=== PATIENT | female | born 2000 | race Caucasian/White ===

== ENCOUNTER 2024-09-20 18:37 | Emergency (ER) | payer OTHER, SELFPAY ==
[2024-09-20 18:43] VITALS: BP 130/90; PULSE 91; RESP 18; TEMP 36.5; O2SAT 100; BMI 23.6
--- NOTE | 2024-09-20 18:57 | PC.WOUNDNOTE ---
pt is aware of ua sample needed
--- NOTE | 2024-09-20 19:01 | HMH.EDGENADL ---
Discharge Plan Disposition Patient Disposition: Home, Self-Care Condition: Good Prescriptions Prescriptions: New nitrofurantoin monohyd/m-cryst [Macrobid] 100 mg capsule 100 mg PO BID 5 Days Qty: 10 0RF Rx Instructions: must administer with a meal/food Referrals Follow up/Referrals: Mago Johnson APRN [Primary Care Provider] - See instructions Karen Shirley DO [Staff Physician] - See instructions Activity Restrictions/Add. Instructions Additional Instructions/Restrictions: Increase your fluid intake. Please start [id number] vitamin. Please call Dr. Shirley in the morning to make a follow-up appointment. You will need to have your AST and ALT rechecked. Please return to the ED for any worsening of your condition. During , you should only take acetaminophen jgxi-[id number] for pain. Clinical Impressions Clinical Impression: , Elevated liver enzymes, Asymptomatic bacteriuria Instructions Patient Instructions: Diet, DI for Acute Abdominal Pain Print Language Print Language: Stateless Discharge ED Provider: Enrique Storm General Adult HPI <Nissa Francisco APRN - Last Filed: 09/20/24 21:53> General Chief complaint: Abdominal Pain Stated complaint: 5 wks ,cramps,abdominal pain Time Seen by Provider: 09/20/24 18:50 Mode of Arrival: Ambulatory Source of Information: Patient Limitations: No Limitations Description of Symptoms (Recalled from ER Triage Doc. by RN): Patient presents to triage ambulatory with fianc?. States she is 5 weeks . States she has done only home tests to this point. Staters she started having abdominal pain yesterday and started a fever today. Also endorses shortness of breath with exertion. Denies any urinary symptoms. Denies vaginal bleeding. Endorses nausea. Denies vomiting. Denies diarrhea. States her last bowel movement was yesterday. Denies blood in stool. Patient endorses a history of cholecystectomy. Otherwise, retains all abdominal organs. Patient states this is her first . History of Present Illness HPI narrative: Patient is a 23-year-old female who presents to the ED after having a positive test at home, LMP 08/18/2024, states she is having intermittent left lower quadrant and suprapubic abdominal cramping over the past 24 hours. She has not taken anything for symptomatic relief. . Related Data Previous Rx's ?Medication ?Instructions ?Recorded nitrofurantoin 100 mg PO BID 5 days #10 caps 09/20/24 monohydrate/macrocrystals 100 mg capsule (Macrobid) Allergies Allergy/AdvReac Type Severity Reaction Status Date / Time No Known Allergies Allergy Verified 09/20/24 19:31 COUNTS INCLUDE 234 BEDS AT THE [facility] <Nissa Francisco APRN - Last Filed: 09/20/24 21:53> COUNTS INCLUDE 234 BEDS AT THE [facility] Disclaimer: The information contained in this section may have been updated after the patient was seen, as this information can be updated by other users. Social History (Updated 09/20/24 @ 21:53 by Nissa Francisco APRN) Smoking Status: Never smoker alcohol intake: never current occupational status: employed Travel in the last 8 weeks: None Have you lived/traveled outside US in past 30 days?: No Contact w/someone who lives/traveled outside US past 30 days?: No Exposure to someone with infectious disease in past 14 days?: No Do you have a fever (greater than 100.4 F or 38 C)?: No Have you tested positive for COVID-19: No Exposed to someone with COVID-19 in past 14 days?: No Do you have a sore throat?: No Do you have a cough?: No Do you have any weakness?: No Do you have any diarrhea?: No Are you experiencing any unusual bleeding?: Yes Do you have any muscle aches/pain?: No Do you have any abdominal pain?: No Are you experiencing loss of taste or smell?: No <Nissa Francisco APRN - Last Filed: 09/20/24 21:53> ROS Obtained: Yes Systems reviewed as appropriate & no additional complaints except as documented Physical Exam <Nissa Francisco APRN - Last Filed: 09/20/24 21:53> General General appearance: alert and in no apparent distress Head Head exam: atraumatic and normocephalic Eye Eye exam: Present normal appearance and PERRL ENT ENT exam: Present normal exam Neck Neck exam: Present normal inspection Chest Chest inspection: Present normal inspection and symmetric chest wall rise; Absent tenderness Respiratory Respiratory exam: Present normal lung sounds bilaterally Cardiovascular Cardiovascular exam: Present regular rate Abdominal Exam Abdominal exam: Present soft, tenderness (Mild left lower quadrant and suprapubic tenderness) and normal bowel sounds Extremities Exam Extremities exam: Present normal inspection and full ROM Back Exam Back exam: Present normal inspection and full ROM Neurological Exam Neurological exam: Present alert and oriented X3 Psychiatric Psychiatric exam: Present normal affect and normal mood Skin Skin exam: Present warm and dry Medical Decision Making <Nissa Francisco APRN - Last Filed: 09/20/24 21:53> Medical Records Screening: Per USPSTF and CDC recommendations, given the prevalence of disease in our region, it is our hospital?s policy to screen for HIV and viral Hepatitis for all patients aged 18 and over and those with ongoing risk factors. Romario Inquiry Pt receiving controlled substance: No Romario was queried for this patient: No Vital Signs: 09/20/24 18:43 09/20/24 20:49 09/20/24 20:53 Temperature 97.7 F Temperature Source Oral Pulse Rate 96 H 87 Pulse Rate [Radial] 91 H Respiratory Rate 18 18 Blood Pressure 110/78 110/78 Blood Pressure [R Arm] 130/90 Blood Pressure Mean 87 Blood Pressure Mean [R Arm] 103 Blood Pressure Source [R Arm] Automatic Cuff 02 Sat by Pulse Oximetry 100 100 99 Oxygen Delivery Method Room Air Room Air Lab Data Lab Results 09/20/24 18:56: SARS-CoV-2 (PCR) Not detected, Influenza A Untype (PCR) Not detected, Influenza Type B (PCR) Not detected 09/20/24 19:05: WBC 5.5, RBC 5.07, Hgb 14.8, Hct 43.8, MCV 86.4, MCH 29.2, MCHC 33.8, RDW 12.5, Plt Count 155, MPV 11.9 H, Neut % (Auto) 73.6, Lymph % (Auto) 17.0, [place] % (Auto) 6.5, Eos % (Auto) 1.8, Baso % (Auto) 0.7, Neut # (Auto) 4.1, Lymph # (Auto) 0.9, [place] # (Auto) 0.4, Eos # (Auto) 0.1, Baso # (Auto) 0.0, Sodium 136, Potassium 3.7, Chloride 103, Carbon Dioxide 23, Anion Gap 13.7, BUN 11, Creatinine 0.70, Estimated Creat Clear 103, Estimated GFR 106, Est GFR ( Amer) 128, Glucose 86, Calcium 8.5, Total Bilirubin 0.5, AST 267 H, ALT 291 H, Alkaline Phosphatase 87, Total Protein 7.1, Albumin 4.5, Globulin 2.6, Albumin/Globulin Ratio 1.7, Lipase 65, HCG, Quant 1943 H 09/20/24 19:35: Urine Color Yellow, Urine Appearance Slightly cloudy, Urine pH 6.5, Ur Specific Morgan <= 1.005, Urine Protein Negative, Urine Glucose (UA) Negative, Urine Ketones 1+, Urine Blood Negative, Urine Nitrate Negative, Urine Bilirubin Negative, Urine Urobilinogen 0.2, Ur Leukocyte Esterase 1+ A, Urine RBC None, Urine WBC 3-5, Ur Squamous Epith Cells 5-10, Urine Bacteria Trace, Urine HCG, Qual Positive 09/20/24 19:05 09/20/24 19:05 Orders (Tests/Meds): ED MEDICATIONS Discontinued Medications Generic Name Dose Route Start Last Admin Trade Name Freq PRN Reason Stop Dose Admin Nitrofurantoin Macrocrystals 100 mg 09/20/24 21:48 09/20/24 21:52 Nitrofurantoin 100mg Capsule PO 09/20/24 21:49 100 mg ONCE ONE Administration ORDERS Category Date Time Status Beta HCG, Quant [HCG,Quantitative] Stat Lab 09/20/24 19:05 Completed CBC w/Auto Diff [Complete Blood Count Auto Diff] Stat Lab 09/20/24 19:05 Completed CMP [Comprehensive Metabolic Panel] Stat Lab 09/20/24 19:05 Completed HSV 1/2 PCR, (BLOOD/SWAB) Routine Lab 09/20/24 20:49 Ordered Hepatitis Panel Stat Lab 09/20/24 20:49 Ordered Lipase Stat Lab 09/20/24 19:05 Completed Rapid PCR Covid and Flu A/B Stat Lab 09/20/24 18:56 Completed Urinalysis and Microscopic Stat Lab 09/20/24 19:35 Completed Urine , HCG Qual. Stat Lab 09/20/24 19:35 Completed Urine Culture Stat Micro 09/20/24 19:35 Received US OB transvaginal Stat Ultrasound 09/20/24 20:53 Completed Medical Decision Narrative: Patient is a pleasant 23-year-old female no significant PMHx who presents to the ED after having a positive test at home, LMP 08/18/2024, states she is having intermittent left lower quadrant and suprapubic abdominal cramping over the past 24 hours. She has not taken anything for symptomatic relief. . Upon initial exam, patient is alert, oriented and cooperative. Patient is hemodynamically stable, afebrile. Physical exam remarkable for left lower quadrant & suprapubic tenderness. Denies fever, chills, body aches, headache, visual disturbances, hand or feet swelling, posterior neck pain, chest pain, shortness of breath, nausea, vomiting, dysuria, reduced urine output, vaginal bleeding, flank pain. Differential diagnosis includes , of unknown location, ovarian cyst, UTI, pyelonephritis, among others Initial workup will be conducted with hematologic labs, transvaginal ultrasound. Initial workup reviewed by me. CBC unremarkable for any leukocytosis, stable H&H. CMP remarkable for AST 267 and ALT 291. hCG quant 1943. Urinalysis remarkable for 1+ leuks with trace bacteria. Will treat even though patient is asymptomatic due to . Due to concern for liver injury, hepatitis and HSV labs added. Patient advises that she has never been told she has elevated AST or ALT in the past, although she denies having any lab work that she is aware of. No previous labs on file to review. I informally interpreted the imaging as gest sac noted in the uterus. Please see final read. I discussed with Dr. You, OB the patient's AST and ALT. She advises these can be monitored outpatient. She advises that she would see the patient in the clinic for follow-up. Upon repeat evaluation, patient had an acceptable resolution of symptoms. They were ambulatory in the ED. Able to tolerate PO. I discussed with patient that we will start Macrobid for her UTI. She was given 1 dose of Macrobid in the ED. discussed that she would need to start [id number] vitamin. Advised her to call the OB office in the morning to make a follow-up appointment. We discussed return precautions to the ED and patient verbalized understanding peer Pending final read, care transferred to Lorne Storm MD. <Enrique Storm MD - Last Filed: 09/20/24 22:07> Vital Signs: 09/20/24 18:43 09/20/24 20:49 09/20/24 20:53 Temperature 97.7 F Temperature Source Oral Pulse Rate 96 H 87 Pulse Rate [Radial] 91 H Respiratory Rate 18 18 Blood Pressure 110/78 110/78 Blood Pressure [R Arm] 130/90 Blood Pressure Mean 87 Blood Pressure Mean [R Arm] 103 Blood Pressure Source [R Arm] Automatic Cuff 02 Sat by Pulse Oximetry 100 100 99 Oxygen Delivery Method Room Air Room Air Lab Data Lab Results 09/20/24 18:56: SARS-CoV-2 (PCR) Not detected, Influenza A Untype (PCR) Not detected, Influenza Type B (PCR) Not detected 09/20/24 19:05: WBC 5.5, RBC 5.07, Hgb 14.8, Hct 43.8, MCV 86.4, MCH 29.2, MCHC 33.8, RDW 12.5, Plt Count 155, MPV 11.9 H, Neut % (Auto) 73.6, Lymph % (Auto) 17.0, [place] % (Auto) 6.5, Eos % (Auto) 1.8, Baso % (Auto) 0.7, Neut # (Auto) 4.1, Lymph # (Auto) 0.9, [place] # (Auto) 0.4, Eos # (Auto) 0.1, Baso # (Auto) 0.0, Sodium 136, Potassium 3.7, Chloride 103, Carbon Dioxide 23, Anion Gap 13.7, BUN 11, Creatinine 0.70, Estimated Creat Clear 103, Estimated GFR 106, Est GFR ( Amer) 128, Glucose 86, Calcium 8.5, Total Bilirubin 0.5, AST 267 H, ALT 291 H, Alkaline Phosphatase 87, Total Protein 7.1, Albumin 4.5, Globulin 2.6, Albumin/Globulin Ratio 1.7, Lipase 65, HCG, Quant 1943 H 09/20/24 19:35: Urine Color Yellow, Urine Appearance Slightly cloudy, Urine pH 6.5, Ur Specific Morgan <= 1.005, Urine Protein Negative, Urine Glucose (UA) Negative, Urine Ketones 1+, Urine Blood Negative, Urine Nitrate Negative, Urine Bilirubin Negative, Urine Urobilinogen 0.2, Ur Leukocyte Esterase 1+ A, Urine RBC None, Urine WBC 3-5, Ur Squamous Epith Cells 5-10, Urine Bacteria Trace, Urine HCG, Qual Positive Orders (Tests/Meds): ED MEDICATIONS Discontinued Medications Generic Name Dose Route Start Last Admin Trade Name Freq PRN Reason Stop Dose Admin Nitrofurantoin Macrocrystals 100 mg 09/20/24 21:48 09/20/24 21:52 Nitrofurantoin 100mg Capsule PO 09/20/24 21:49 100 mg ONCE ONE Administration ORDERS Category Date Time Status Beta HCG, Quant [HCG,Quantitative] Stat Lab 09/20/24 19:05 Completed CBC w/Auto Diff [Complete Blood Count Auto Diff] Stat Lab 09/20/24 19:05 Completed CMP [Comprehensive Metabolic Panel] Stat Lab 09/20/24 19:05 Completed HSV 1/2 PCR, (BLOOD/SWAB) Routine Lab 09/20/24 20:49 Ordered Hepatitis Panel Stat Lab 09/20/24 20:49 Ordered Lipase Stat Lab 09/20/24 19:05 Completed Rapid PCR Covid and Flu A/B Stat Lab 09/20/24 18:56 Completed Urinalysis and Microscopic Stat Lab 09/20/24 19:35 Completed Urine , HCG Qual. Stat Lab 09/20/24 19:35 Completed Urine Culture Stat Micro 09/20/24 19:35 Received US OB transvaginal Stat Ultrasound 09/20/24 20:53 Completed Medical Decision Narrative: Patient is a pleasant 23-year-old female no significant PMHx who presents to the ED after having a positive test at home, LMP 08/18/2024, states she is having intermittent left lower quadrant and suprapubic abdominal cramping over the past 24 hours. She has not taken anything for symptomatic relief. . Upon initial exam, patient is alert, oriented and cooperative. Patient is hemodynamically stable, afebrile. Physical exam remarkable for left lower quadrant & suprapubic tenderness. Denies fever, chills, body aches, headache, visual disturbances, hand or feet swelling, posterior neck pain, chest pain, shortness of breath, nausea, vomiting, dysuria, reduced urine output, vaginal bleeding, flank pain. Differential diagnosis includes , of unknown location, ovarian cyst, UTI, pyelonephritis, among others Initial workup will be conducted with hematologic labs, transvaginal ultrasound. Initial workup reviewed by me. CBC unremarkable for any leukocytosis, stable H&H. CMP remarkable for AST 267 and ALT 291. hCG quant 1943. Urinalysis remarkable for 1+ leuks with trace bacteria. Will treat even though patient is asymptomatic due to . Due to concern for liver injury, hepatitis and HSV labs added. Patient advises that she has never been told she has elevated AST or ALT in the past, although she denies having any lab work that she is aware of. No previous labs on file to review. I informally interpreted the imaging as gest sac noted in the uterus. Please see final read. I discussed with Dr. You, OB the patient's AST and ALT. She advises these can be monitored outpatient. She advises that she would see the patient in the clinic for follow-up. Upon repeat evaluation, patient had an acceptable resolution of symptoms. They were ambulatory in the ED. Able to tolerate PO. I discussed with patient that we will start Macrobid for her UTI. She was given 1 dose of Macrobid in the ED. discussed that she would need to start [id number] vitamin. Advised her to call the OB office in the morning to make a follow-up appointment. We discussed return precautions to the ED and patient verbalized understanding peer Pending final read, care transferred to Lorne Storm MD. Enrique Storm: Upon assumption of care patient was hemodynamically stable. Workup reviewed by me, hematologic labs are nonactionable with the exception of transaminitis that does not require acute intervention and hepatitis panel has been sent off and will undergo surveillance on an outpatient basis. Urinalysis consistent with asymptomatic bacteriuria which will be treated with Macrobid. Transvaginal ultrasound single intrauterine gestational sac without visualization of pole or yolk sac. Recommended interval follow-up. Given this patient will follow-up in [address] Shirley and was given return precautions and verbalized understanding. Critical Care <Nissa Francisco APRN - Last Filed: 09/20/24 21:53> Critical Care Time Critical Care Time: No
[2024-09-20 19:10] LABS: Coronavirus 19, PCR Not Detected (NotDetected); Influenza A, PCR Not Detected (NotDetected); Influenza B, PCR Not Detected (NotDetected)
[2024-09-20 19:12] LABS: Basophils % 0.7 % (0.1-2.0); Eosinophils # 0.1 K/mm3 (0.0-0.4); Eosinophils % 1.8 % (0.1-12.0); Hematocrit 43.8 % (37.0-47.0); Hemoglobin 14.8 g/dL (12.2-16.2); Lymphocytes # 0.9 K/mm3 (0.7-4.5); Mean Corpuscular HGB Conc 33.8 g/dL (31.8-35.4); Mean Corpuscular Hemoglobin 29.2 pg (27.0-31.2); Mean Corpuscular Volume 86.4 fl (81-99); Mean Platelet Volume 11.9 fl (7.4-10.4); Monocytes # 0.4 K/mm3 (0.1-1.0); Monocytes % 6.5 % (1.7-9.3); Neutrophils # 4.1 K/mm3 (1.8-7.8); Neutrophils % 73.6 % (37.0-80.0); Platelet Count 155 K/mm3 (142-424); Red Blood Count 5.07 M/mm3 (4.20-5.40); Red Cell Distribution Width 12.5 % (11.5-17.5); White Blood Count 5.5 K/mm3 (4.8-10.8)
[2024-09-20 19:16] LABS: Chloride 103 mmol/L (98-107)
[2024-09-20 19:17] LABS: Albumin Level 4.5 g/dl (3.5-5.0); Potassium 3.7 mmoL/L (3.5-5.1); Sodium 136 mmol/L (136-145)
[2024-09-20 19:19] LABS: Alanine Aminotransferase 291 U/L (12-78); Albumin/Globulin Ratio 1.7 (1.1-1.8); Alkaline Phosphatase 87 U/L (38-126); Anion Gap 13.7 mEq/L (5-15); Aspartate Amino Transferase 267 U/L (14-36); Bilirubin,Total 0.5 mg/dl (0.2-1.3); Blood Urea Nitrogen 11 mg/dl (7-17); Carbon Dioxide 23 mmol/L (22.0-30.0); Creatinine Clearance Estimated 103 mL/min (50-200); Estimated Glomerular Filt Rate 106 ml/min (>60); GFR (African American) 128 ML/MIN (>60); Globulin 2.6 g/dL (1.3-3.2); Total Protein,Serum 7.1 g/dl (6.3-8.2)
[2024-09-20 19:20] LABS: Calcium 8.5 mg/dl (8.4-10.2); Glucose 86 mg/dl (74-100)
[2024-09-20 19:37] LABS: HCG,Quantitative 1943 mIU/ml (0-5.42)
[2024-09-20 19:38] LABS: Microscopic, Urine URINE MICROSCOPIC (MICROSCOPIC)
[2024-09-20 19:40] LABS: Bilirubin,Urine Negative (Negative); Blood, Urine Negative (Negative); Color,Urine YELLOW (Yellow); Glucose,Urine (UA) Negative (Negative); Ketones,Urine 1+ (Negative); Leukocyte Esterase,Urine 1+ (Negative); Nitrate,Urine Negative (Negative); PH,Urine 6.5 (5.0-8.5); Protein,Urine Negative (Negative); Specific Gravity, Urine <= 1.005 (1.005-1.030); Urobilinogen,Urine 0.2 EU/dl (0.2)
[2024-09-20 19:42] LABS: Appearance,Urine Slightly Cloudy (Clear); Urine Pregnancy, HCG Qual. Positive (Negative)
[2024-09-20 19:53] LABS: Bacteria,Urine Trace /lpf
--- NOTE | 2024-09-20 20:17 | PC.NURSE ---
US called in for Transvag
[2024-09-20 20:32] LABS: Lipase 65 U/L (23-300)
[2024-09-20 20:49] VITALS: BP 110/78; PULSE 96; O2SAT 100
[2024-09-20 20:53] VITALS: BP 110/78; PULSE 87; RESP 18; O2SAT 99
--- NOTE | 2024-09-20 20:53 | US_ITS ---
PROCEDURE INFORMATION: Exam: US , Transvaginal and US Duplex Artery and Vein, Ovaries, Complete Exam date and time: 09/20/2024 8:55 PM Age: 23 years old Clinical indication: complicated by abdominal or pelvic pain; Lower; First trimester (<14 weeks 0 days); Gestational age or lmp: 4w5d; ; Additional info: Determine preg location / abd pain / + preg LABS AND CLINICAL REPORTS: Last menstrual period start date: 08/18/2024 Gestational age (Established): 4 w 5 d Estimated due date (Established): 05/25/2025 TECHNIQUE: Imaging protocol: Real-time transvaginal obstetrical ultrasound of the maternal pelvis and a first trimester with image documentation. Transvaginal imaging was used for better evaluation of the fetus, adnexa, and/or cervix. Real-time duplex ultrasound scan of the arterial and venous flow of the ovaries with B-mode, color Doppler flow and spectral waveform analysis, Complete Duplex. Duplex exam was performed to evaluate for torsion and other vascular conditions. COMPARISON: No relevant prior studies available. FINDINGS: GESTATION: Gestation: Single intrauterine gestational sac without pole/yolk sac. heart rate: NA Extra-embryonic membranes/Placenta: Not evaluated due to early gestation. Amniotic fluid: Not evaluated due to early gestation. BIOMETRY: Gestational age (AUA): 4 w 5 d Estimated due date (AUA): 05/25/2025 Mean sac diameter: 0.48 cm. MATERNAL: Right ovary/adnexa: Right ovary measures 2.87 cm x 2.49 cm x 1.94 cm. Right ovarian volume is 7.26 mL. Mildly complex small RIGHT corpus luteal cyst. Left ovary/adnexa: Left ovary measures 2.5 cm x 2.23 cm x 1.12 cm. Left ovarian volume is 3.27 mL. Few small anechoic follicles. Doppler: Doppler examination of the ovaries with pulsed wave and color images was performed which demonstrate arterial/venous waveforms within normal limits. Intraperitoneal space: Small amount of free fluid in the pelvis. IMPRESSION: 1. Single early intrauterine gestational sac without visualization of pole or yolk sac. 2. Recommend short interval followup in 14 days. 3. Normal ovaries demonstrating blood flow on Doppler. COMMENT: Recommendations For Followup If No Viable Intrauterine : Empty gestational sac (NO yolk sac): Followup sonogram after 14 days. NO embryo WITH heartbeat on follow up sonogram is suggestive failed .
--- NOTE | 2024-09-20 21:00 | PC.NURSE ---
pt gone to ultrasound at this time.
--- NOTE | 2024-09-20 21:25 | PC.NURSE ---
pt is back from ultrasound.
--- NOTE | 2024-09-20 21:37 | PC.NURSE ---
Paged OB per Marti's
[2024-09-20] MEDS: NITROFURANTOIN 100MG CAPSULE 100 MG PO (21:52)
[2024-09-20 22:17] VITALS: BP 118/54; PULSE 78; RESP 14; TEMP 36.7; O2SAT 98
== END 2024-09-20 22:18 | disposition home or self-care (01) ==
PROVIDERS: Nurse Practitioner; Emergency Provider Emergency Medicine; PCP Nurse Practitioner Family
DX: Z34.90 Encounter for supervision of normal pregnancy, unspecified, unspecified trimester (principal); R82.71 Bacteriuria; R74.8 Abnormal levels of other serum enzymes; R10.32 Left lower quadrant pain; R10.2 Pelvic and perineal pain; R11.0 Nausea; R50.9 Fever, unspecified; Z3A.01 Less than 8 weeks gestation of pregnancy
CPT/HCPCS: 76817; 80053; 81001; 81025; 83690; 84702; 85025; 87086; 87636; 99283

== ENCOUNTER 2024-11-02 10:34 | Outpatient (CLI) | payer OTHER, SELFPAY ==
[2024-11-03 21:29] LABS: Neisseria gonorrhoeae, NAA Negative (Negative)
== END 2024-11-02 23:59 | disposition home or self-care (01) ==
LOC: LAB.DROPOF 11-04 10:34
PROVIDERS: Visit Provider Obstetrics & Gynecology
DX: Z34.91 Encounter for supervision of normal pregnancy, unspecified, first trimester (principal); Z3A.10 10 weeks gestation of pregnancy
CPT/HCPCS: 87491; 87591

== ENCOUNTER 2024-12-10 16:06 | Outpatient (CLI) | payer OTHER, SELFPAY ==
[2024-12-10 17:01] LABS: Basophils % 0.3 % (0.1-2.0); Eosinophils # 0.1 Kmm3 (0.0-0.4); Eosinophils % 1.5 % (0.1-12.0); Hematocrit 38.9 % (37.0-47.0); Hemoglobin 13.5 g/dL (12.2-16.2); Immature Granulocytes # 0.03 10^3uL; Immature Granulocytes % 0.3 %; Lymphocytes # 2.2 K/mm3 (0.7-4.5); Lymphocytes % 22.4 % (10-50); Mean Corpuscular HGB Conc 34.7 g/dL (31.8-35.4); Mean Corpuscular Hemoglobin 30.2 pg (27.0-31.2); Mean Platelet Volume 11.6 fl (7.4-10.4); Monocytes # 0.4 K/mm3 (0.1-1.0); Monocytes % 3.9 % (1.7-9.3); Neutrophils # 6.9 K/mm3 (1.8-7.8); Neutrophils % 71.6 % (37.0-80.0); Nucleated Red Blood Cells # 0 10^3/uL; Nucleated Red Blood Cells % 0 %; Platelet Count 198 K/mm3 (142-424); Red Blood Count 4.47 M/mm3 (4.20-5.40); Red Cell Distribution Width 12.9 % (11.5-17.5); White Blood Count 9.6 K/mm3 (4.8-10.8)
[2024-12-10 19:09] LABS: Alanine Aminotransferase 19 U/L (12-78); Albumin Level 3.7 g/dl (3.5-5.0); Albumin/Globulin Ratio 1.5 (1.1-1.8); Alkaline Phosphatase 47 U/L (38-126); Aspartate Amino Transferase 22 U/L (14-36); Bilirubin,Total 0.4 mg/dl (0.2-1.3); Blood Urea Nitrogen 11 mg/dl (7-17); Calcium 8.8 mg/dl (8.4-10.2); Carbon Dioxide 24 mmol/L (22.0-30.0); Chloride 107 mmol/L (98-107); Estimated Glomerular Filt Rate 125 ml/min (>60); GFR (African American) 151 ML/MIN (>60); Globulin 2.4 g/dL (1.3-3.2); Glucose 67 mg/dl (74-100); Sodium 135 mmol/L (136-145); Total Protein,Serum 6.1 g/dl (6.3-8.2)
[2024-12-10 20:02] LABS: HIV Combo NEGATIVE (Negative)
[2024-12-10 20:06] LABS: Hepatitis C Ab Qual. W/ RFX NEGATIVE (Negative)
[2024-12-10 20:15] LABS: Anion Gap 7.6 mEq/L (5-15); Potassium 3.6 mmoL/L (3.5-5.1)
[2024-12-10 20:34] LABS: Albumin Level 4.1 g/dl (3.5-5.0)
[2024-12-10 20:36] LABS: Bilirubin,Unconjugated 0.2 mg/dL (0.0-1.1)
[2024-12-10 20:37] LABS: Alanine Aminotransferase 20 U/L (12-78); Alkaline Phosphatase 51 U/L (38-126); Aspartate Amino Transferase 23 U/L (14-36); Bilirubin,Direct 0.1 mg/dl (0.0-0.4); Bilirubin,Indirect 0.3 mg/dL (0.0-0.9); Bilirubin,Total 0.4 mg/dl (0.2-1.3); Magnesium 1.7 mg/dl (1.6-2.3); Total Protein,Serum 6.5 g/dl (6.3-8.2)
[2024-12-10 20:48] LABS: Free T4 (Free Thyroxine) 0.98 ng/dl (0.78-2.19)
[2024-12-10 21:08] LABS: Thyroid Stimulating Hormone 2.33 uIU/mL (0.465-4.68)
[2024-12-11 00:24] LABS: RPR W/RFX Titers Nonreactive (Nonreactive)
[2024-12-11 05:08] LABS: Hepatitis B Surface Antigen Negative (Negative)
[2024-12-11 07:11] LABS: Rubella Antibodies, IgG 2.11 index (Immune >0.99)
== END 2024-12-10 23:59 | disposition home or self-care (01) ==
LOC: LAB 16:07
PROVIDERS: Obstetrics & Gynecology; Visit Provider Internal Medicine
DX: R06.02 Shortness of breath (principal); R74.8 Abnormal levels of other serum enzymes; R00.2 Palpitations; Z34.01 Encounter for supervision of normal first pregnancy, first trimester
CPT/HCPCS: 36415; 80053; 80076; 83735; 84439; 84443; 85025; 86592; 86762; 86803; 86850; 87340; 87389; 93270

== ENCOUNTER 2025-01-07 12:48 | Outpatient (CLI) | payer OTHER, SELFPAY ==
--- NOTE | 2025-01-07 13:00 | US_ITS ---
PROCEDURE: US OB /MATERNAL DETAIL CLINICAL INDICATION: 20 wk , schedule in 5 weeks COMPARISON: US US OB TRANSVAGINAL from 09/20/2024 FINDINGS: Transabdominal sonographic images of the pelvis were obtained. From her established due date she is 20 weeks 2 days. Single viable intrauterine gestation. Cephalic position. Placenta: Posteriorplacenta grade 1. There is an average amount of fluid. The cervix appears satisfactory. Closed and measuring 3.1 cm in length. Complete survey performed and was unremarkable on the submitted images as in PACS. No discrete anomalies identified on survey imaging by technologist. Active fetus. Three-vessel cord with satisfactory umbilical cord insertion. 4- chamber heart noted. Situs, aortic arch, LVOT, RVOT, three-vessel view appear normal. Survey of brain & ventricles Unremarkable. Cerebellum, thalamus, choroid plexus, cisterna magna appear normal. Face and neck survey unremarkable. Profile, nasion, lips and nose appeared normal. Diaphragm and chest views unremarkable. Abdomen: Both kidneys noted and unremarkable. Stomach and bladder noted and satisfactory. Spine: Survey of the spine satisfactory with no anomalies identified nor imaged. Cervical, thoracic, lower spine appear normal. Both arms and legs noted. Amniotic Fluid: Adequate. MVP 6.44 cm Measurements: Average ultrasound age 20weeks 3days. Estimated due date by ultrasound age 1005/24/2025. Estimated weight 345g BPD = 20weeks 6days HC = 20weeks 2days AC = 20weeks 6days FL = 19weeks 5days Growth Percentile= 45 Heart Rate = 143bpm Cerebellum = 19weeks 4days Humerus = 20weeks 2days HC/AC is 1.13 FL/BPD is 0.63 FL/AC is 0.2 IMPRESSION: 1. Viable fetus in the cephalic presentation with a posterior placenta grade 1. 2. The fluid is within normal limits with an MVP 6.44 cm. 3. Anatomical scan appears normal. 4. biometry is consistent with the dates. Dictated by: Montrell Cabrera MD 01/07/2025 19:38 Montrell Cabrera MD in OV 01/07/2025 19:38
== END 2025-01-07 23:59 | disposition home or self-care (01) ==
LOC: RAD 12:49
PROVIDERS: PCP Obstetrics & Gynecology; Visit Provider Obstetrics & Gynecology
DX: Z34.02 Encounter for supervision of normal first pregnancy, second trimester (principal); Z3A.20 20 weeks gestation of pregnancy
CPT/HCPCS: 76811

== ENCOUNTER 2025-01-19 08:48 | Outpatient (CLI) | payer OTHER, SELFPAY ==
--- OUTSIDE RECORDS SUMMARY | 2025-01-19 08:51 | XMS_ITS | Clinical Summary ---
Author Organization [facility] Address [address] [place] [address] Care Team Providers Care Music Typographer Name Role Phone Rafael Avina MD Primary Care Provider [phone] Allergies No known active allergies Active Problems Problem Noted Date Diagnosed Date Hypothyroid 04/28/2023 Social History Tobacco Use Types Packs/Day Years Used Date Smoking Tobacco: Never Smokeless Tobacco: Never Tobacco Cessation:Counseling Given: Not Answered Alcohol Use Standard Drinks/Week Comments Yes 1 (1 standard drink = 0.6 oz pur e alcohol) Comments Unknown Sex and Gender Information Value Date Recorded Sex Assigned at Not on file Legal Sex Female 4:26 PM EDT Gender Identity Not on file Sexual Orientation Not on file Last Filed Vital Signs Vital Sign Reading Time Taken Comments Blood Pressure 130/83 04/28/2023 6:50 PM EDT Pulse 65 04/28/2023 5:30 PM EDT Temperature 36.4 C (97.5 F) 04/28/2023 4:40 PM EDT Respiratory Rate 20 04/28/2023 5:30 PM EDT Oxygen Saturation 100% 04/28/2023 4:40 PM EDT Inhaled Oxygen Concentration - - Weight 58.1 kg (128 lb 1.4 oz) 04/28/2023 4:40 P M EDT Height 147.3 cm (4' 10 ) 04/28/2023 4:40 PM EDT Body Mass Index 26.77 04/28/2023 4:40 PM EDT Plan of Treatment Health Maintenance Due Date Last Done Comments [facility]-Depression Screening 2002 [facility]-HIV Screening 2002 [facility]-Hepatitis C Screening 2002 [facility]-Infant/Child/Adol SDOH Screenings 2002 [facility]-Varicella Vaccines (2 of 2 - 2-dose childhood series) 02/18/2008 11/26/2007 [facility]-Obesity Intervention 2008 HPV Vaccines (1 - 3-dose series) 2017 [facility]-Hepatitis A Vaccines (2 of 2 - 2-dose series) 03/12/2019 09/12/2018 [facility]- SDOH Screenings 2020 [facility]-Adult SDOH Screenings 2020 [facility]-DTaP,Tdap,and Td Vaccine s (2 - Tdap) 2021 11/26/2007 [facility]-Hepatitis B Vaccines (1 of 3 - 19+ 3-dose series) 2021 [facility]-Pap Smear 10/30/2023 [id number] Vaccine (3 - 2023- season) 2024 08/21/2021, 06/12/2021 [facility]-Influenza Vaccine (Seaso n Ended) 2025 12/14/2021 [facility]-Zoster Vaccines (1 of 2) 2052 11/26/2007 [facility]-HIB Vaccines Aged Out No longer e ligible based on patient's age to complete this topic [facility]-IPV Vaccines Aged Out No longer e ligible based on patient's age to complete this topic [facility]-Pneumococcal Vaccine: Pediatrics (0 to 5 Years) and At-Risk Patients (6 to 49 Years) Aged Out No longer eligible b ased on patient's age to complete this topic [facility]-Rotavirus Vaccines Aged Out No lo nger eligible based on patient's age to complete this topic Insurance [facility] [employer] Care Teams Music Typographer Relationship Specialty Start Date End Date Rafael Avina MD [address] [place], [place] [id number] PCP - General 04/28/23
--- NOTE | 2025-01-19 09:00 | CA_ITS ---
APPROVED REPORT EXAM: Comprehensive 2D, Doppler, and color-flow Echocardiogram Casting Machine Adjuster: Alena Christianson CRT Ht: 4 ft 10 in Wt: 110lbs BSA: 1.41 BP: 104/71 mmHg Indications: LV Function:, Shortness of Breath, 22 weeks 2D Dimensions LA Volume 21.20 mL LA Volume Index 14.60 mL/m2 (M/F) 16-34 M-Mode Dimensions RVDd 2.26 cm (0.9-2.6) LA Diam 2.58 cm (1.9-4.0) LVDd 4.13 cm (3.5-5.7) LVDs 2.99 cm (3.5-5.7) IVSd 0.86 cm (0.6-1.1) PWd 0.61 cm (0.6-1.1) EF (Teich) 54.00% FS 27.60% EDV (Teich) 75.50 mL TAPSE 1.98 (<1.7) ESV (Teich) 34.70 mL LV Diastology E Decel Time 163 (160-240 msec) E/A Ratio 1.30 MED A' 5.90 cm/s LAT A' 7.80 cm/s Aortic Valve AO Peak GR. 7.70 mmHg Mitral Valve MV E Max Vikram. 77.0 (40-130 cm/s) MV A Velocity 59.0 (40-130 cm/s) E/A Ratio 1.30 MV PHT 48.0 ms Pulmonary Valve PV Peak Velocity 145.0 (50-150 cm/s) Tricuspid Valve TR P. Velocity 228.00 cm/s RAP Estimate 10.00 mmHg RVSP 30.80 mmHg Left Ventricle The left ventricle is normal size. The left ventricular systolic function is normal. The left ventricular ejection fraction is within the normal range. There is normal left ventricular wall thickness. There is normal LV segmental wall motion. The left ventricular diastolic function is normal. LVEF is 55%. Right Ventricle The right ventricle is normal size. The right ventricular systolic function is normal. Atria Left atrium is mildly dilated. The right atrium size is normal. Color Doppler is indeterminate for presence of interatrial shunt. Aortic Valve The aortic valve opens well. There is no aortic valvular stenosis. No aortic regurgitation is present. Mitral Valve The mitral valve is normal in structure. No evidence of mitral valve stenosis. Mild mitral regurgitation. Tricuspid Valve The tricuspid valve leaflets are thin and pliable. Mild tricuspid regurgitation. RVSP is 20-25 mmHg. Pulmonic Valve The pulmonary valve is normal in structure. Trace pulmonic regurgitation. Great Vessels The aortic root is normal in size. IVC is normal in size and collapses >50% with inspiration. Pericardium There is no pericardial effusion. Other Information Study Quality: Fair Conclusion Normal biventricular systolic function. Mild LA dilation. Mild MR, mild TR. Color Doppler is indeterminate for presence of interatrial shunt. In the setting of indeterminate interatrial color Doppler, further evaluation with limited TTE + agitated saline administration is suggested. Electronically signed by : Stephanie Marinelli MD 01/23/2025 22:05:42
--- NOTE | 2025-01-19 10:00 | CA_ITS ---
APPROVED REPORT Exam: Exercise Treadmill Technologist: Gladis Suggs Ht: 4 ft 10 in Wt: 110 lbs BSA: 1.41 m2 HR: 84 bpm BP: 110/68 mmHg Stress Test Details Test: Exercise stress testing was performed using a Beto protocol. HR Resting HR: 84 bpm Max Heart Rate (APMHR): 198 bpm Max HR Achieved: 169 bpm Target HR (85% APMHR): 168 bpm % of APMHR: 85 Recovery HR: 98 bpm HR response to stress: Normal HR response to stress BP Resting BP: 110.0/68.0 mmHg Max BP: 147.0/87.0 mmHg Recovery BP: 124.0/82.0 mmHg BP response to stress: Normal blood pressure response to stress. ECG Resting ECG: Normal sinus rhythm Stress ECG: < 0.[address] depression Clinical Exercise duration: 7:10 min Exercise capacity: 9.2 METs Stress ECG Conclusion Symptoms: Chest pressure, dyspnea Arrhythmias/Ectopy: None ST-T Changes: <0.[address] depression. Conclusion: Average exercise capacity. Good HR augmentation at peak stress. No evidence of ischemia on ECG at peak stress. Electronically signed by : Stephanie Marinelli MD 01/19/2025 13:16:42
== END 2025-01-19 23:59 | disposition home or self-care (01) ==
LOC: RT 08:49
PROVIDERS: PCP Nurse Practitioner Family; Visit Provider Internal Medicine
DX: O99.412 Diseases of the circulatory system complicating pregnancy, second trimester (principal); I08.1 Rheumatic disorders of both mitral and tricuspid valves; R74.8 Abnormal levels of other serum enzymes; Z3A.22 22 weeks gestation of pregnancy
CPT/HCPCS: 93017; 93018; 93306

== ENCOUNTER 2025-03-02 14:56 | Outpatient (CLI) | payer OTHER, SELFPAY ==
--- OUTSIDE RECORDS SUMMARY | 2025-03-02 15:00 | XMS_ITS | Clinical Summary ---
Author Organization [facility] Address [address] [place] [address] Care Team Providers Care Recreation Center Director Name Role Phone Rafael Avina MD Primary Care Provider [phone] Allergies No known active allergies Active Problems [...] 19+ 3-dose series) 2021 [facility]Y-Pap Smear 10/30/2023 [id number] Vaccine (3 - 2023- season) 2024 08/21/2021, 06/12/2021 [facility]Y-Influenza Vaccine (#1) 2025 12/14/2021 UKY-Zoster Vaccines (1 of 2) [...] patient's age to complete this topic Insurance [facility] Care Teams Recreation Center Director Relationship Specialty Start Date End Date Rafael Avina MD [address] [place] [address] PCP - General 04/28/23
--- OUTSIDE RECORDS SUMMARY | 2025-03-02 15:00 | XMS_ITS | Clinical Summary ---
Author Organization [facility] Address [address] [place] [address] Care Team Providers Care Environmental Inspector Name Role Phone Rafael Avina MD Primary Care Provider [phone] Allergies No known active allergies Medications LEVOTHYROXINE SODIUM PO Take 25 mcg by mouth Daily. Active minocycline (MINOCIN,DYNACI N) 50 MG capsule Take 50 mg by mouth 2 (Two) Times a Day. Active spironolactone (ALDACTONE) 100 MG tablet Take 100 mg by mouth Daily. 09/11/2020 Active amoxicillin (AMOXIL) 500 MG capsuleIndicati ons:Tonsillitis Take 1 capsule by mouth 3 (Three) Times a Day. 30 capsule 08/04/2021 Active Active Problems Problem Noted Date Diagnosed Date Biliary dyskinesia 09/22/2018 Overview (09/22/2018): Added automatically from request for surgery [id number] Dizziness 08/13/2014 Headache above the eye region 08/13/2014 Influenza A 08/13/2014 OM (otitis media), acute 08/13/2014 Overview (10/06/2018): Overview: updated 2014 Sore throat 08/13/2014 Family History Medical History Relation Name Comments Melanoma Mother Relation Name Status Comments Mother Social History Tobacco Use Types Packs/Day Years Used Date Smoking Tobacco: Never Smokeless Tobacco: Never Alcohol Use Standard Drinks/Week Comments No 0 (1 standard drink = 0.6 oz pur e alcohol) AUDIT-C Answer Date Recorded Q1: How often do you have a drink containing alc ohol? Never 09/24/2020 Average Number of Drinks Not on file 021 Frequency of Binge Drinking Not on file 09/06 Abuse Screen Answer Date Recorded Unsafe at Home or Work/School Not on file Feels Threatened by Someone? Not on file 06/2023 Does Anyone Keep You from Co ntacting Others or Doint Things Outside the Home? Not on file 05/15/2023 Physical Sign of Abuse Present Not on file 1 Housing Stability Answer Date Recorded Current Living Arrangements Not on file 05/05 Potentially Unsafe Housing Conditions Not on kae e 05/15/2023 Family and Community Support Answer Dilip e Recorded Help with Day-to-Day Activities Not on file 05/15/2023 Lonely or Isolated Not on file 05/15/2023 Employment Answer Date Recorded Do you want help finding or keeping work or a gary b? Not on file 05/15/2023 Disabilities Answer Date Recorded Concentrating, Remembering, or Making Decisions Difficulty Not on file 05/15/2023 Doing Errands Independently Difficulty Not on fi le 05/15/2023 Education Answer Date Recorded Help with school or training? Not on file Preferred Language Not on file 05/15/2023 Comments No Sex and Gender Information Value Date Recorded Sex Assigned at Not on file Legal Sex Female 12:29 PM EDT Gender Identity Not on file Sexual Orientation Not on file Last Filed Vital Signs Vital Sign Reading Time Taken Comments Blood Pressure 114/72 08/04/2021 11:43 AM EST Pulse 98 08/04/2021 11:43 AM EST Temperature 36.6 C (97.8 F) 08/04/2021 11:43 AM EST Respiratory Rate 16 08/04/2021 11:43 AM EST Oxygen Saturation 99% 08/04/2021 11:43 AM EST Inhaled Oxygen Concentration - - Weight 52.2 kg (115 lb) 08/04/2021 11:43 AM EST Height 144.8 cm (4' 9 ) 08/04/2021 11:43 AM EST Body Mass Index 24.89 08/04/2021 11:43 AM EST Plan of Treatment Health Maintenance Due Date Last Done Comments Annual Gynecologic Pelvic an d Breast Exam 2002 HPV VACCINES (1 - 3-dose series) 2017 ANNUAL PHYSICAL 09/22/2018 HEPATITIS C SCREENING 09/22/2018 MENINGOCOCCAL B VACCINE (1 o f 2 - Standard) 2018 TDAP/TD VACCINES (1 - Tdap) 2021 COVID-19 Vaccine (1 - 2023-2 5 season) 2024 INFLUENZA VACCINE 05/05/2025 MENINGOCOCCAL VACCINE Aged Out No saundra evens eligible based on patient's age to complete this topic Pneumococcal Vaccine 0-49 Aged Out No longer eligible based on patient's age to complete this topic Insurance Care Teams Environmental Inspector Relationship Specialty Start Date End Date Rafael Avina MD [address] [address] PCP - General Family Medicine 11/16/17
--- OUTSIDE RECORDS SUMMARY | 2025-03-02 15:00 | XMS_ITS | Clinical Summary ---
Author Organization [facility] Address [address] [place] [address] Care Team Providers Care Hopper Operator Name Role Phone Rafael Avina MD Primary Care Provider [phone] Allergies No known active allergies Medications ibuprofen (IBUPROFEN) 100 MG/5ML suspension Take 10 mg/kg by mouth every 6 (six) hours as needed. Active Levothyroxine Sodium (SYNTHROID PO) Take by mouth. Active magnesium citrate 1.745 GM/30ML SOLN solution Take 296 mLs by mouth daily for 5 doses. 1500 mL 9 Active Additional Information Patient not taking.Reported on 06/11/2023 LEVOTHYROXINE SODIUM PO Take 25 mcg by mouth daily. Active levothyroxine (SYNTHROID) 50 MCG tablet Take 50 mcg by mouth daily. 3 Active acetaminophen (TYLENOL) 500 MG tablet Take 500 mg by mouth every 6 (six) hours as needed for Pain. Active Rainelle-3 Fatty Acids (FISH OIL) 1000 MG capsule Take by mouth. Activ e Active Problems Problem Noted Date Diagnosed Date Hypothyroid 04/28/2023 08/14/2023 Biliary dyskinesia 09/22/2018 08/14/2023 Overview (08/14/2023): Added automatically from request for surgery [id number] Sore throat 08/13/2014 Headache above the eye region 08/13/2014 Dizziness 08/13/2014 OM (otitis media), acute 08/13/2014 Overview (08/14/2023): updated 2014 Overview: updated 2014 Influenza A 08/13/2014 Social History Tobacco Use Types Packs/Day Years Used Date Smoking Tobacco: Never Assessed Tobacco Cessation:Counseling Given: Not Answered Comments No Sex and Gender Information Value Date Recorded Sex Assigned at Not on file Legal Sex Female 4:29 PM EST Gender Identity Not on file Sexual Orientation Not on file Last Filed Vital Signs Vital Sign Reading Time Taken Comments Blood Pressure 125/89 09/11/2018 8:22 PM EST Pulse 90 09/11/2018 8:22 PM EST Temperature 36.6 C (97.9 F) 09/11/2018 8:22 PM EST Respiratory Rate 18 09/11/2018 8:22 PM EST Oxygen Saturation 100% 09/11/2018 3:57 PM EST Inhaled Oxygen Concentration - - Weight 56.7 kg (125 lb) 08/14/2023 9:38 AM EST Height 132.1 cm (4' 4 ) 08/13/2014 5:23 PM EST Body Mass Index - - Plan of Treatment Health Maintenance Due Date Last Done Comments HPV Vaccine (1 - 3-dose series) 2017 Hepatitis A (HepA) Vaccine ( 2 of 2 - 2-dose series) 03/12/2019 09/12/2018 Hepatitis B (HepB) Vaccine ( 1 of 3 - 19+ 3-dose series) 2021 Tdap/Td Vaccine >11 yo (2 - Tdap) 2021 008 Cervical Cancer Screening 10/30/2023 Annual SDOH Screening 08/05/2024 Depression Screening 08/05/2024 Influenza Vaccine (#1) 2025 12/14/2021 Haemophilus Influenzae Type B (Hib) Vaccine Aged Out No longer eligible b ased on patient's age to complete this topic Meningococcal ACWY Aged Out No longer eligible based on patient's age to complete this topic Pneumococcal Vaccines 6-49 yo Risk Aged Out No longer eligible based on patient's age to complete this topic Polio (IPV) Aged Out No longer eligi ble based on patient's age to complete this topic Rotavirus (RV) Vaccine Aged Out No lo nger eligible based on patient's age to complete this topic Insurance [employer] [facility] Care Teams Hopper Operator Relationship Specialty Start Date End Date Rafael Avina MD [address] [place] [address] PCP - General Family Medicine 08/22/13
[2025-03-02 17:03] LABS: Hematocrit 36.0 % (37.0-47.0); Hemoglobin 12.0 g/dL (12.2-16.2); Immature Granulocytes % 0.5 %; Mean Corpuscular HGB Conc 33.3 g/dL (31.8-35.4); Mean Corpuscular Hemoglobin 29.5 pg (27.0-31.2); Mean Corpuscular Volume 88.5 fl (81-99); Nucleated Red Blood Cells % 0 %; Platelet Count 160 K/mm3 (142-424); Red Blood Count 4.07 M/mm3 (4.20-5.40); Red Cell Distribution Width-SD 37.9 fL; White Blood Count 9.4 K/mm3 (4.8-10.8)
[2025-03-02 18:31] LABS: Glucose 1 Hour 89 mg/dL (74-100)
[2025-03-02 18:35] LABS: Chloride 101 mmol/L (98-107)
[2025-03-02 18:36] LABS: Potassium 3.5 mmoL/L (3.5-5.1); Sodium 131 mmol/L (136-145)
[2025-03-02 18:39] LABS: Anion Gap 8.5 mEq/L (5-15); Blood Urea Nitrogen 10 mg/dl (7-17); Calcium 8.8 mg/dl (8.4-10.2); Carbon Dioxide 25 mmol/L (22.0-30.0); Creatinine,Serum 0.50 mg/dl (0.52-1.04); Estimated Glomerular Filt Rate 154 ml/min (>60); GFR (African American) 187 ML/MIN (>60); Glucose 88 mg/dl (74-100)
[2025-03-03 15:06] LABS: RPR W/RFX Titers Nonreactive (Nonreactive)
== END 2025-03-02 23:59 | disposition home or self-care (01) ==
PROVIDERS: Internal Medicine; Visit Provider Obstetrics & Gynecology
DX: Z34.82 Encounter for supervision of other normal pregnancy, second trimester (principal); R06.02 Shortness of breath; R74.8 Abnormal levels of other serum enzymes; R00.2 Palpitations
CPT/HCPCS: 36415; 80048; 82947; 85025; 86592

== ENCOUNTER 2025-04-04 16:38 | Outpatient (CLI) | payer OTHER, SELFPAY ==
--- OUTSIDE RECORDS SUMMARY | 2025-04-04 16:43 | XMS_ITS | Clinical Summary ---
Author Organization [facility] Address [address] [place] [address] Care Team Providers Care Dewer Name Role Phone Rafael Avina MD Primary Care Provider [phone] Allergies No known active allergies Medications LEVOTHYROXINE [...] (09/22/2018): Added automatically from request for surgery [id number] Dizziness 08/13/2014 Headache above the eye region [...] to complete this topic Insurance Care Teams Dewer Relationship Specialty Start Date End Date Rafael Avina MD [address] [address] PCP - General Family Medicine 11/16/17
--- OUTSIDE RECORDS SUMMARY | 2025-04-04 16:43 | XMS_ITS | Clinical Summary ---
Author Organization [facility] Address [address] [place] [address] Care Team Providers Care Hoisting Pile Driving Engineer Name Role Phone Rafael Avina MD Primary Care Provider [phone] Allergies No known active allergies Active Problems [...] [facility]Y-HIV Screening 2002 [facility]-Hepatitis C Screening 2002 [facility]-/Child/Adol SDOH Screenings 2002 [facility]-Varicella Vaccines (2 of [...] 19+ 3-dose series) 2021 [facility]-Pap Smear 10/30/2023 [id number] Vaccine (3 - 2023- season) 2024 08/21/2021, [...] patient's age to complete this topic Insurance [facility] Care Teams Hoisting Pile Driving Engineer Relationship Specialty Start Date End Date Rafael Avina MD [address] [place] [address] PCP - General 04/28/23
--- OUTSIDE RECORDS SUMMARY | 2025-04-04 16:43 | XMS_ITS | Clinical Summary ---
Author Organization [facility] Address [address] [place] [address] Care Team Providers Care Human Resources File Clerk Name Role Phone Rafael Avina MD Primary Care Provider [phone] Allergies No known active allergies Medications ibuprofen [...] tablet Take 50 mcg by mouth daily. Active acetaminophen (TYLENOL) 500 MG tablet Take 500 mg by mouth every 6 (six) hours as needed for Pain. Active Ralston-3 Fatty Acids (FISH OIL) 1000 MG capsule Take by mouth. Activ e Active Problems Problem Noted Date Diagnosed Date Hypothyroid 04/28/2023 08/14/2023 Biliary dyskinesia 09/22/2018 08/14/2023 Overview (08/14/2023): Added automatically from request for surgery [id number] Sore throat 08/13/2014 Headache above the eye region 08/13/2014 Dizziness 08/13/2014 OM (otitis media), acute 08/13/2014 Overview (08/14/2023): updated 2015 Overview: updated 2014 Influenza A 08/13/2014 Social [...] to complete this topic Insurance [employer] [facility] Care Teams Human Resources File Clerk Relationship Specialty Start Date End Date Rafael Avina MD [address] [place] [address] PCP - General Family Medicine 08/22/13
[2025-04-04 17:00] VITALS: BP 112/75; PULSE 94; RESP 20; TEMP 36.7; O2SAT 97; BMI 26.9
[2025-04-04 17:08] LABS: Microscopic, Urine URINE MICROSCOPIC (MICROSCOPIC)
[2025-04-04 17:12] LABS: Bilirubin,Urine Negative (Negative); Color,Urine YELLOW (Yellow); Glucose,Urine (UA) Negative (Negative); Ketones,Urine Negative (Negative); Leukocyte Esterase,Urine 2+ (Negative); PH,Urine 7.5 (5.0-8.5); Protein,Urine TRACE (Negative); Specific Gravity, Urine 1.020 (1.005-1.030); Urobilinogen,Urine 0.2 EU/dl (0.2)
[2025-04-04 17:26] LABS: Squamous Epithelial Cell,Urine 20-50 #/hpf (0-5)
[2025-04-04] MEDS: LACTATED RINGERS 1000ML 1,000 ML 999 ML IV ×2 (18:04→20:08)
[2025-04-04 19:18] LABS: Fetal Fibronectin (Rapid) Negative (Negative)
== END 2025-04-04 21:14 | disposition home or self-care (01) ==
LOC: OBOUT 16:41 → OB 16:42
PROVIDERS: Visit Provider Obstetrics & Gynecology
DX: Z34.83 Encounter for supervision of other normal pregnancy, third trimester (principal); Z3A.30 30 weeks gestation of pregnancy
CPT/HCPCS: 59025; 81001; 82731; 87086; 96360; 96361; 99212; G0463; J7120

== ENCOUNTER 2025-04-29 15:53 | Outpatient (CLI) | payer OTHER, SELFPAY | END 2025-04-29 23:59 | LOC: LAB.DROPOF 05-03 08:10 | PROVIDERS: PCP Obstetrics & Gynecology; Visit Provider Obstetrics & Gynecology | DX: Z34.82 Encounter for supervision of other normal pregnancy, second trimester (principal); R74.8 Abnormal levels of other serum enzymes; Z3A.00 Weeks of gestation of pregnancy not specified | CPT/HCPCS: 86403; 87086 ==

== ENCOUNTER 2025-05-19 14:17 | Outpatient (CLI) | payer OTHER, SELFPAY ==
--- OUTSIDE RECORDS SUMMARY | 2025-05-20 09:29 | XMS_ITS | Clinical Summary ---
Author Organization [facility] Address [address] [place] [address] Care Team Providers Care Caul Puller Name Role Phone Rafael vAina MD Primary Care Provider [phone] Allergies No known active allergies Medications ibuprofen [...] (six) hours as needed for Pain. Active Gillette-3 Fatty Acids (FISH OIL) 1000 MG capsule Take by mouth. Activ e Active Problems Problem Noted Date Diagnosed Date Hypothyroid 04/28/2023 08/14/2023 Biliary dyskinesia 09/22/2018 08/14/2023 Overview (08/14/2023): Added automatically from request for surgery [id number] Sore throat 08/13/2014 Headache above the eye [...] to complete this topic Insurance [employer] [facility] Care Teams Caul Puller Relationship Specialty Start Date End Date Rafael Avina MD [address] [place] [address] PCP - General Family Medicine 08/22/13
--- OUTSIDE RECORDS SUMMARY | 2025-05-20 09:29 | XMS_ITS | Clinical Summary ---
Author Organization [facility] Address [address] [place] [address] Care Team Providers Care Ceo & Co Founder Name Role Phone Rafael Avina MD Primary Care Provider [phone] Allergies No known active allergies Active Problems [...] 19+ 3-dose series) 2021 [facility]Y-Pap Smear 10/30/2023 [id number] Vaccine (3 - 2024- season) 2025 08/21/2021, 06/12/2021 [facility]Y-Influenza Vaccine (#1) 2025 12/14/2021 [...] patient's age to complete this topic Insurance [facility] Care Teams Ceo & Co Founder Relationship Specialty Start Date End Date Rafael Avina MD [address] [place] [address] PCP - General 04/28/23
--- OUTSIDE RECORDS SUMMARY | 2025-05-20 09:29 | XMS_ITS | Clinical Summary ---
Author Organization [facility] Address [address] [place] [address] Care Team Providers Care Locomotive Electrician Name Role Phone Rafael Avina MD Primary Care Provider [phone] Allergies No known active allergies Medications LEVOTHYROXINE [...] (09/22/2018): Added automatically from request for surgery [id number] Dizziness 08/13/2014 Headache above the eye region [...] 2018 TDAP/TD VACCINES (1 - Tdap) 2021 INFLUENZA VACCINE 03/05/2025 MENINGOCOCCAL VACCINE Aged Out No saundra evens eligible based on patient's age to complete this topic Pneumococcal Vaccine 0-49 Aged Out No longer eligible based on patient's age to complete this topic Insurance [address] [id number] Care Teams Locomotive Electrician Relationship Specialty Start Date End Date Rafael Avina MD [address] [address] PCP - General Family Medicine 11/16/17
== END 2025-05-19 23:59 | disposition home or self-care (01) ==
LOC: LAB.DROPOF 05-20 09:22
PROVIDERS: PCP Obstetrics & Gynecology; Visit Provider Obstetrics & Gynecology
DX: Z34.93 Encounter for supervision of normal pregnancy, unspecified, third trimester (principal); Z3A.00 Weeks of gestation of pregnancy not specified
CPT/HCPCS: 87086

== ENCOUNTER 2025-05-21 05:04 | Inpatient (IN) | payer OTHER, SELFPAY ==
[2025-05-21] VITALS (7 sets, daily range): BP systolic 129–132; BP diastolic 86–95; PULSE 85–106; RESP 16–19; TEMP 36.6–36.8; O2SAT 99–100; BMI 29.7
--- OUTSIDE RECORDS SUMMARY | 2025-05-21 05:10 | XMS_ITS | Clinical Summary ---
Author Organization [facility] Address [address] [place] [address] Care Team Providers Care Interior Plant Caretaker Name Role Phone Rafael Avina MD Primary Care Provider [phone] Allergies No known active allergies Active Problems [...] 19+ 3-dose series) 2021 [facility]Y-Pap Smear 10/30/2023 [id number] Vaccine (3 - 2024- season) 2025 08/21/2021, [...] patient's age to complete this topic Insurance [facility] Care Teams Interior Plant Caretaker Relationship Specialty Start Date End Date Rafael Avina MD [address] [place] [address] PCP - General 04/28/23
--- OUTSIDE RECORDS SUMMARY | 2025-05-21 05:10 | XMS_ITS | Clinical Summary ---
Author Organization [facility] Address [address] [place] [address] Care Team Providers Care Stained Glass Installer Name Role Phone Rafael Avina MD Primary Care Provider [phone] Allergies No known active allergies Medications ibuprofen [...] (six) hours as needed for Pain. Active [place]ague-3 Fatty Acids (FISH OIL) 1000 MG capsule Take by mouth. Activ e Active Problems Problem Noted Date Diagnosed Date Hypothyroid 04/28/2023 08/14/2023 Biliary dyskinesia 09/22/2018 08/14/2023 Overview (08/14/2023): Added automatically from request for surgery [id number] Sore throat 08/13/2014 Headache above the eye [...] to complete this topic Insurance [employer] [facility] Care Teams Stained Glass Installer Relationship Specialty Start Date End Date Rafael Avina MD [address] [place] [address] PCP - General Family Medicine 08/22/13
--- OUTSIDE RECORDS SUMMARY | 2025-05-21 05:10 | XMS_ITS | Clinical Summary ---
Author Organization [facility] Address [address] [place] [address] Care Team Providers Care Boning Room Worker Name Role Phone Rafael Avina MD Primary Care Provider [phone] Allergies No known active allergies Medications LEVOTHYROXINE [...] (09/22/2018): Added automatically from request for surgery [id number] Dizziness 08/13/2014 Headache above the eye region [...] age to complete this topic Insurance [address] [id number] Care Teams Boning Room Worker Relationship Specialty Start Date End Date Rafael Avina MD [address] [address] PCP - General Family Medicine 11/16/17
[2025-05-21] MEDS: DEXTROSE 5%-LACTATED RINGERS 1,000 ML 125 ML IV ×2 (05:59→10:22)
[2025-05-21] MEDS: OXYTOCIN/RINGERS LACTATE 30 UNITS/500 ML BAG IV (05:59)
[2025-05-21 06:01] LABS: Hematocrit 36.0 % (37.0-47.0); Hemoglobin 11.7 g/dL (12.2-16.2); Immature Granulocytes % 0.4 %; Mean Corpuscular HGB Conc 32.5 g/dL (31.8-35.4); Mean Corpuscular Hemoglobin 26.1 pg (27.0-31.2); Mean Corpuscular Volume 80.2 fl (81-99); Nucleated Red Blood Cells % 0 %; Platelet Count 157 K/mm3 (142-424); Red Blood Count 4.49 M/mm3 (4.20-5.40); Red Cell Distribution Width-SD 40.0 fL; White Blood Count 9.3 K/mm3 (4.8-10.8)
[2025-05-21 06:03] LABS: Albumin Level 3.4 g/dl (3.5-5.0); Chloride 104 mmol/L (98-107); Potassium 3.9 mmoL/L (3.5-5.1); Sodium 134 mmol/L (136-145)
[2025-05-21 06:05] LABS: Blood Urea Nitrogen 12 mg/dl (7-17); Creatinine Clearance Estimated 128 mL/min (50-200); Creatinine,Serum 0.70 mg/dl (0.52-1.04); Estimated Glomerular Filt Rate 105 ml/min (>60); GFR (African American) 127 ML/MIN (>60)
[2025-05-21 06:06] LABS: Alanine Aminotransferase 19 U/L (12-78); Albumin/Globulin Ratio 1.1 (1.1-1.8); Alkaline Phosphatase 221 U/L (38-126); Anion Gap 11.9 mEq/L (5-15); Aspartate Amino Transferase 26 U/L (14-36); Bilirubin,Total 0.2 mg/dl (0.2-1.3); Calcium 8.8 mg/dl (8.4-10.2); Carbon Dioxide 22 mmol/L (22.0-30.0); Globulin 3.0 g/dL (1.3-3.2); Glucose 96 mg/dl (74-100); Total Protein,Serum 6.4 g/dl (6.3-8.2)
[2025-05-21 07:56] LABS: RPR W/RFX Titers Nonreactive (Nonreactive)
[2025-05-21] MEDS: LACTATED RINGERS 1000ML 1,000 ML 999 ML IV (08:10)
--- NOTE | 2025-05-21 08:20 | P.HP_ITS ---
OB - H&P: HPI Antepartum History of Present Illness Chief complaint: Elective induction of labor History of present illness: Mrs Sujey Lantigua is a 24 yo at 39w3d who presents to [facility] L&D for scheduled elective induction of labor. She has had good care. Baby is active. Admits to irregular contractions and pelvic pressure. No leakage of fluid or vaginal bleeding. GBS negative. History of Present Criteria for establishing EDC:: LMP confirmed by 1st trimester US care: good care Ultrasounds: normal mid trimester US Obstetrical complications: none Medical complications: none Labs Blood type: A (+) positive Rubella: immune RPR/VDRL: nonreactive GBS status: negative HBsAG: [facility] Disclaimer: The information contained in this section may have been updated after the patient was seen, as this information can be updated by other users. Medical History (Updated 05/21/25 @ 08:54 by Karen Shirley DO) 39 weeks gestation of Encounter for elective induction of labor Encounter for related examination in third trimester Eczema, dyshidrotic Encounter for supervision of other normal , second trimester Pilonidal cyst of cleft Palpitations Shortness of breath Chest pain No significant past medical history Surgical History Hx of cholecystectomy Social History Smoking Status: Never smoker alcohol intake: never current occupational status: unemployed Travel in the last 8 weeks?: None Have you lived/traveled outside [place] in past 30 days?: No Contact w/someone who lives/traveled outside US past 30 days?: No Exposure to someone with infectious disease in past 14 days?: No Do you have a fever (greater than 100.4 F or 38 C)?: No Have you tested positive for COVID-19?: No Exposed to someone with COVID-19 in past 14 days?: No Do you have a sore throat?: No Do you have a cough?: No Do you have any weakness?: No Do you have any diarrhea?: No Are you experiencing any unusual bleeding?: No Do you have any muscle aches/pain?: No Do you have any abdominal pain?: No Are you experiencing loss of taste or smell?: No Other Medical History Have you received the Flu Vaccine for this season: No Have you received the Pneumonia Vaccine: No Review of Systems Review of Systems Review of systems:: pertinent systems reviewed and negative unless documented below Meds Home Medications and Allergies Home Medications ?Medication ?Instructions ?Recorded ?Confirmed ?Type No Known Home Medications 04/23/2505/05 History New Prescriptions to Start Prescriptions: Allergies Allergy/AdvReac Type Severity Reaction Status Date / Time No Known Allergies Allergy Verified 05/19/25 13:59 OB - H&P: Exam Physical Exam Vital signs: Temp Pulse Resp BP Pulse Ox O2 Del Method 98.1 F 106 H 16 132/95 H 100 Room Air 05/21/25 05:20 05/21/25 05:20 05/21/25 05:20 05/21/25 05:20 05/21/25 05:20 05/21/25 05:20 Constitutional no acute distress and cooperative Routine HEENT Exam Head: Present normocephalic and atraumatic Eye: Absent conjunctivae pink ENT: Present mucous membranes moist Routine Neck Exam Present full ROM Routine Respiratory Exam Present CTA bilaterally and normal respiratory effort Routine Cardiovascular Exam Present RRR Routine Abdominal Exam Present soft (Gravid); Absent tenderness Routine Rectal Exam Patient deferred: visual exam Routine Exam External: Present normal urethra appearance; Absent erythema, tenderness, lesions, ecchymosis, lacerations or vulvar erythema Routine Extremities Exam Present full ROM; Absent edema or calf tenderness Routine Neurological Exam Present alert, moving all extremities and normal speech Routine Psychiatric Exam Present normal affect and cooperative Detailed Labor and Delivery Exam Dilation (cm): 3 Effacement (%): 70 Cervix position: mid station: -2 Consistency: soft Membranes: artificially ruptured Amniotic fluid: clear Baseline heart rate: 130 monitor accelerations: Present monitor decelerations: None middle or intermediate school principal variability: Moderate (11-25) Contraction frequency (min): 3 OB - Results Labs Labs: Short CBC 05/21/25 Range/Units 05:40 WBC 9.3 (4.8-10.8) K/mm3 Hgb 11.7 L (12.2-16.2) g/dL Hct 36.0 L (37.0-47.0) % Plt Count 157 (142-424) K/mm3 BMP 05/21/25 05:40 Sodium 134 L Potassium 3.9 Chloride 104 Carbon Dioxide 22 BUN 12 Creatinine 0.70 Glucose 96 Calcium 8.8 Liver Function 05/21/25 Range/Units 05:40 Total Bilirubin 0.2 (0.2-1.3) mg/dl AST 26 (14-36) U/L ALT 19 (12-78) U/L Alkaline Phosphatase 221 H (38-126) U/L Albumin 3.4 L (3.5-5.0) g/dl OB - A/P Antepartum (1) Encounter for elective induction of labor: Status: Acute (2) 39 weeks gestation of : Status: Acute Additional Plan Planning to breastfeed?: Yes Additional Information:: Admit to L&D for scheduled elective induction of labor Induction with Pitocin GBS negative Close monitoring Anticipate
[2025-05-21] MEDS: ePHEDrine SULF 50MG/ML VIAL 10 MG IV (09:10)
--- NOTE | 2025-05-21 09:11 | P.PNANES_ITS ---
[facility] Disclaimer: The information contained in this section may have been updated after the patient was seen, as this information can be updated by other users. Medical History (Updated 05/21/25 @ 08:54 by Karen Shirley DO) 39 weeks gestation of Encounter for elective induction of labor Encounter for related examination in third trimester Eczema, dyshidrotic Encounter for supervision of other normal , second trimester Pilonidal cyst of [place]ary [place] cleft Palpitations Shortness of breath Chest pain No significant past medical history Surgical History Hx of cholecystectomy Social History Smoking Status: Never smoker alcohol intake: never substance use type: denies use current occupational status: unemployed Travel in the last 8 weeks?: None [facility] Anesthesia Checklist Patient Identification Patient Identification: Arm Band and Verbal (Name & ) Structural Data Admitted From: Home Planned Operative Procedure/s: Labor Epidural Consent for Planned Operative Procedure(s) Verified: Yes Verified Documents: Surgical Consent NPO Status Verified Time NPO: 00:00 Chart Verification Results Verified: CBC and BMP Additional verifications Patient : Yes Anesthesia Reactions: No Airway Assessment Mallampati Score:: Class II C-Spine Mobility Assessed: Yes TMJ Mobility Assessed: Yes Dentition: Good Dentition Neurological Assessment Level of Consciousness: Awake, Alert and Appropriate Hx Seizures: No Numbness or tingling in extremities: No Anesthesia Plan Anesthesia Risk discussed: Yes Anesthesia Plan: Verified ASA Class: II Anesthesia Type: Epidural
[2025-05-21] MEDS: ONDANSETRON 4MG/2ML VIAL 4 MG IV (13:24)
[2025-05-21 14:12] LABS: Microscopic, Urine URINE MICROSCOPIC (MICROSCOPIC)
[2025-05-21 14:38] LABS: Bilirubin,Urine Negative (Negative); Color,Urine YELLOW (Yellow); Glucose,Urine (UA) 1+ (Negative); Ketones,Urine Negative (Negative); Leukocyte Esterase,Urine Negative (Negative); PH,Urine 6.5 (5.0-8.5); Protein,Urine Negative (Negative); Specific Gravity, Urine 1.010 (1.005-1.030); Urobilinogen,Urine 1.0 EU/dl (0.2)
[2025-05-21 15:00] LABS: Squamous Epithelial Cell,Urine Occasional #/hpf (0-5)
--- NOTE | 2025-05-21 22:23 | EXP.DN ---
Delivery Note Delivery Date:: 05/21/25 Delivery Time:: 21:52 Anesthesia Type: Epidural Was labor medically induced?: No Induction method: per pitocin protocol Gestational age (weeks): 39 delivered prior to 39 weeks?: No Infant Gender: Female at 1 minute: 7 at 5 minutes: 9 LAC or MLE?: LAC Delivery Procedure:: Mom complete with epidural. Pushed for approximately 50 minutes. Head delivered spontaneously over intact perineum in OA position. Nuchal cord x 1 was easily reduced. Anterior shoulder dystocia noted and resolved in 40 seconds with suprapubic pressure and Lexii maneuver. Posterior shoulder and remainder of body delivered spontaneously. Baby placed on maternal abdomen, mouth and nares bulb suctioned, warmed/dried and stimulated. Delayed cord clamping was performed for 50 seconds. Cord was clamped and cut by father of baby. Cord blood was obtained. Placenta delivered spontaneously and intact. Second degree perineal laceration repaired with 3-0 Vicryl. Hemostasis noted. Mom and baby were skin to skin and doing well after delivery. Live female baby (baby's name is Asad Moore) APGARs 7 (1 min), 9 (5 min) EBL 300 mL Placental Delivery Description: Spontaneous
[2025-05-21] MEDS: BENZOCAINE-MENTHOL SPRAY 56GM CAN TP (22:36)
[2025-05-21] MEDS: OXYTOCIN/RINGERS LACTATE 30 UNITS/500 ML BAG 40 UNITS IV (22:38)
[2025-05-22] MEDS: IBUPROFEN 400 MG TABLET 800 MG PO ×3 (00:09→19:42)
[2025-05-22] MEDS: LANOLIN CREAM 40GM TP (01:07)
[2025-05-22] MEDS: ACETAMINOPHEN 500MG TAB 1000 MG PO ×4 (01:08→23:50)
[2025-05-22] MEDS: WITCH HAZEL 40 PADS/BOX 1 EACH TP ×2 (01:08→23:51)
[2025-05-22 08:00] LABS: Hematocrit 29.3 % (37.0-47.0); Hemoglobin 9.2 g/dL (12.2-16.2); Immature Granulocytes % 0.6 %; Mean Corpuscular HGB Conc 31.4 g/dL (31.8-35.4); Mean Corpuscular Hemoglobin 25.3 pg (27.0-31.2); Mean Corpuscular Volume 80.7 fl (81-99); Nucleated Red Blood Cells % 0 %; Platelet Count 133 K/mm3 (142-424); Red Blood Count 3.63 M/mm3 (4.20-5.40); Red Cell Distribution Width-SD 41.0 fL; White Blood Count 17.1 K/mm3 (4.8-10.8)
[2025-05-22] MEDS: SENNA 8.6MG TABLET 8.6 MG PO ×2 (09:47→23:50)
--- NOTE | 2025-05-22 12:58 | EXP.ACUTE.PN ---
Subjective *Date: 05/22/25 *Time: 12:58 Interval history: PPD # 1 s/p Feeling well. Pain controlled. Breast feeding. Lochia is appropriate. Voiding without difficulty and passing flatus. Tolerating regular diet. Denies fever/chills, chest pain and shortness of breath. No headaches, vision changes, lightheadedness/dizziness. Admits to lower extremity swelling. No calf pain. Ambulating well ad guillermo. Medical Exam Vital signs and Labs for Last 24 Hours: Vital Signs Temp 05/21/25 18:49 98.2 F 05/21/25 17:33 98.0 F 05/21/25 15:20 97.8 F 05/21/25 13:20 97.8 F Intake and Output 05/21/25 05/22/25 05/22/25 23:59 07:59 15:59 Intake Total 1000 / 3024.300 94.667 / 250.000 155.333 / 250.000 Balance 1000 / 3024.300 94.667 / 250.000 155.333 / 250.000 Intake: Intake, Total IV Amount 1000 / 3024.300 94.667 / 250.000 155.333 / 250.000 Dextrose 5%-Lactated Ringers 1, 1000 / 2000 000 ml @ 125 mls/hr IV .Q8H CUONG Rx#:[id number] Oxytocin/Ringers Lactate 30 94.667 / 250.000 155.333 / 250.000 units In 500 ml @ 40 mls/hr IV .[id number] CUONG Rx#:[id number] Laboratory Results - last 24 hr 05/21/25 13:17: Urine Color Yellow, Urine Appearance Clear, Urine pH 6.5, Ur Specific [place] 1.010, Urine Protein Negative, Urine Glucose (UA) 1+, Urine Ketones Negative, Urine Blood Negative, Urine Nitrate Negative, Urine Bilirubin Negative, Urine Urobilinogen 1.0, Ur Leukocyte Esterase Negative, Urine WBC 3-5, Ur Squamous Epith Cells Occasional 05/22/25 07:24: WBC 17.1 H D, RBC 3.63 L, Hgb 9.2 L, Hct 29.3 L, MCV 80.7 L, MCH 25.3 L, MCHC 31.4 L, RDW 14.0, Plt Count 133 L, MPV 13.0 H, Neut % (Auto) 83.4 H, Lymph % (Auto) 9.7 L, [place] % (Auto) 5.8, Eos % (Auto) 0.3, Baso % (Auto) 0.2, Neut # (Auto) 14.2 H, Lymph # (Auto) 1.7, [place] # (Auto) 1.0, Eos # (Auto) 0.1, Baso # (Auto) 0.0 I & O for Labs for Last 24 Hours: Intake & Output 05/19/25 05/20/25 05/21/25 05/22/25 23:59 23:59 23:59 23:59 Intake Total 3024.300 / 3024.300 250.000 / 250.000 Balance 3024.300 / 3024.300 250.000 / 250.000 Weight 142 lb Head: Present atraumatic and normocephalic ENT: Present normal exam Neck: Present full ROM Respiratory: Present CTA bilaterally and normal respiratory effort Cardiac: Present Reg Rate and Rhythm GI: Present soft; Absent distention or tenderness Comments:: Uterine fundus firm and below umbilicus Rectal (female): Present deferred (female): Present deferred Extremities: Present full ROM and edema (+3 bilateral lower extremity edema); Absent calf tenderness Neuro: Present alert, awake and moves all extremities Assessment and Plan *Assessment and plan (1) Status post normal vaginal delivery: Status: Acute Category: Medical (2) Encounter for elective induction of labor: Status: Acute Category: Medical Code(s): Z34.90 - Encounter for supervision of normal , unspecified, unspecified trimester (3) 39 weeks gestation of : Status: Acute Category: Medical Code(s): Z3A.39 - 39 weeks gestation of Plan Continue routine care AM Hgb 9.2 (11.74 on admission) -- Venofer 200 mg IV x 1 dose Plan d/c home tomorrow, PPD # 2
[2025-05-22] MEDS: IRON SUCROSE COMPLEX 200 MG in 0.9 % SODIUM CHLORIDE 100 ML 220 MG IV (13:31)
[2025-05-22] MEDS: PRENATAL MULTIVITAMIN W/IRON 1 EACH PO (16:58)
[2025-05-23 08:17] VITALS: BP 120/72; PULSE 99; RESP 18; TEMP 37.2; O2SAT 98
--- NOTE | 2025-05-23 10:20 | EXP.DC.SUM ---
General Admission date:: 05/21/25 Discharge date: 05/23/25 HPI HPI HPI: PPD # 2 s/p Feeling well. Pain controlled. Breast feeding. Lochia is light. Voiding without difficulty and passing flatus. Tolerating regular diet. Denies fever/chills, chest pain and shortness of breath. No headaches, vision changes, lightheadedness/dizziness. She has lower extremity swelling. No calf pain. Ambulating well ad guillermo. Hospital Course Hospital Course Hospital Course: Mrs Sujey Lantigua is a 24 yo at 39w3d who presents to [facility] L&D for scheduled elective induction of labor. She has had good care. Baby is active. Admits to irregular contractions and pelvic pressure. No leakage of fluid or vaginal bleeding. GBS negative. She underwent induction of labor with Pitocin and amniotomy. She had a normal spontaneous vaginal delivery on 05/21/25 at 2152. She delivered a live female baby, Asad Moore, weighing 7 lb 3 oz. APGARs 7 (1 min), 9 (5 min). EBL 300 mL. She did well . Pain controlled. Breast feeding. Light lochia. Voiding without difficulty and passing flatus. Tolerating regular diet. Denies fever/chills, chest pain and shortness of breath. No headaches, dizziness/lightheadedness or vision changes. Vital signs stable, afebrile. Heart regular rate and rhythm. Lungs clear to auscultation. Abdomen soft, nontender. She had +3 bilateral lower extremity edema. No calf tenderness to palpation. Ambulating well ad guillermo. Normal hospital course. She was discharged to home on PPD # 2 with instructions to follow-up in the office in 2 weeks or sooner if needed. Exam Data for Last 24 hours Vital signs and Labs for Last 24 Hours: Temp Pulse Resp BP Pulse Ox O2 Del Method 99.0 F 99 H 18 120/72 98 Room Air 05/23/25 08:17 05/23/25 08:17 05/23/25 08:17 05/23/25 08:17 05/23/25 08:17 05/23/25 08:17 I & O for Last 24 hours: Intake & Output 05/20/25 05/21/25 05/22/25 05/23/25 23:59 23:59 23:59 23:59 Intake Total 3024.300 / 3024.300 360.000 / 360.000 Balance 3024.300 / 3024.300 360.000 / 360.000 Weight 142 lb Constitutional Constitutional: no acute distress and cooperative *Routine HEENT Exam Head: Present normocephalic and atraumatic Eye: Absent conjunctivae pink ENT: Present mucous membranes moist *Routine Neck Exam Neck: Present full ROM *Routine Respiratory Exam Respiratory: Present CTA bilaterally and normal respiratory effort *Routine Cardiovascular Exam Cardiovascular: Present RRR *Routine Abdominal Exam Abdominal: Present soft; Absent tenderness or distended *Routine Rectal Exam Patient deferred: visual exam *Routine Exam Patient deferred: external exam *Routine Extremities Exam Extremities: Present edema (+3 bilateral lower extremity edema) and full ROM; Absent calf tenderness *Routine Neurological Exam Neurological: Present alert, moving all extremities and normal speech Routine Psychiatric Exam Psychiatric: Present normal affect and cooperative DS: Diagnosis Discharge Diagnosis (1) Status post normal vaginal delivery: Status: Acute (2) Encounter for elective induction of labor: Status: Acute Code(s): Z34.90 - Encounter for supervision of normal , unspecified, unspecified trimester (3) 39 weeks gestation of : Status: Acute Code(s): Z3A.39 - 39 weeks gestation of (4) Acute blood loss anemia: Status: Acute Code(s): D62 - Acute posthemorrhagic anemia Meds Home Medications and Allergies Home Medications ?Medication ?Instructions ?Recorded ?Confirmed ?Type No Known Home Medications 04/23/25 05/21/25 History New Prescriptions to Start Prescriptions: Allergies Allergy/AdvReac Type Severity Reaction Status Date / Time No Known Allergies Allergy Verified 05/19/25 13:59 Discharge Plan Disposition Patient Disposition: Home, Self-Care Condition: Good Discharge Order Discharge Orders: Discharge Order (Routine); Ordered 05/23/25 Ordered By: Karen Shirley Follow up Plan Follow up with: Karen Shirley DO [Primary Care Provider, [employer]] - 2 weeks Prescriptions/Medication Reconciliation: No Action No Known Home Medications Problem Reconciliation Problems Reviewed?: Yes Patient Discharge Instructions ACTIVITY: Limited activity DIET: continue same diet and regular diet Additional Instructions: Congratulations!! Discharge: 1. Take 800 mg Ibuprofen every 8 hours as needed for pain. You can also take 500-1000 mg of Tylenol in between doses, every 6-8 hours. 2. Nothing in the vagina for 6 weeks - no intercourse, douching or tampons. No tub baths/hot tubs or swimming pools 3. Reasons to return to L&D or call On-Call doctor - fever (greater than 100.4) - heavy vaginal bleeding (soaking through 1 pad in less than 2 hours) - vaginal discharge (malodorous and/or purulent) - severe headaches not resolved by medication or rest 4. depression/blues - Normal to feel anxious/overwhelmed for first 2 weeks - Talk to your doctor if: severe anxiety, trouble bonding with baby, withdrawing from other family members, thoughts of harming yourself or others Karen Shirley DO [facility] [phone] Print Language: [place] Providers Primary Care Provider: Karen Shirley Admit Provider: Karen Shirley Attending Provider: Karen Shirley
[2025-05-23] MEDS: IBUPROFEN 400 MG TABLET 800 MG PO (11:01)
[2025-05-23] MEDS: SENNA 8.6MG TABLET 8.6 MG PO (11:02)
== END 2025-05-23 13:20 | disposition home or self-care (01) | DRG 806 ==
PROVIDERS: Admitting Provider Obstetrics & Gynecology; PCP Obstetrics & Gynecology; Visit Provider Obstetrics & Gynecology
DX: O69.81X0 Labor and delivery complicated by cord around neck, without compression, not applicable or unspecified (principal); D62 Acute posthemorrhagic anemia; Z37.0 Single live birth; Z3A.39 39 weeks gestation of pregnancy; O90.81 Anemia of the puerperium; O66.0 Obstructed labor due to shoulder dystocia; O70.1 Second degree perineal laceration during delivery; Z23 Encounter for immunization
CPT/HCPCS: 51702; 59025; 80053; 81001; 85025; 86592; 86850; 94761; J1756; J2003; J2405; J2795; J3010; J7120; J7121